=== PATIENT | female | born 1985 ===

== ENCOUNTER 2025-03-30 13:05 | Outpatient (AMB) | payer MEDICAID, SELFPAY ==
--- NOTE | 2025-03-30 13:11 | MHC.OFFVIS ---
Vital Signs 03/30/25 13:13 Height 5 ft 4.5 in Weight 202 lb 4 oz BMI 34.2 BP 128/74 Blood Pressure Location Lt brachial Position Sitting Pulse 101 H Pulse Source Pulse Oximeter Pulse Oximetry (%) 97 Oxygen Delivery Method Room Air Intake Visit Reasons: E-FOREST PRACTICES FIELD COORDINATOR: Narcolepsy Intake Note: Patient presents FOREST PRACTICES FIELD COORDINATOR Narcolepsy. Patient on Adderall and wakik and still sleepy in afternoon. issues sleeping at night wake up frequently during the night. GOes to bed around 9-10pm 5-6am. Witnessed snoring/gasping. Patient last sleep study done 2017 in [facility]. Accompanied by: Self / Same As Patient Allergies No Known Allergies Allergy (Verified 03/30/25 13:14) HPI Comments Details: 39 year old female referred to us by google search for a neurologist who specializes in sleep disorders, here for Narcolepsy. She was diagnosed in January 2009 with Narcolepsy while residing in [facility] during her [facility] studies. She was prescribed adderall, and still had symptoms of hypersonia, months later her neurologists added Wakix which makes her have a bowel movement, takes a 20min nap then she is alert the entire day. She has had chronic fatigue, excessive daytime sleepiness, with hypersomnia, and sleep paralysis. She has fallen asleep in school, at work, and in the movie theatres. She talks and mumbles when coming out of sleep and awakening. She has vivid dreams and hallucinations differentiating between dreams are reality. Denies A/V hallucinations. She has general anxiety and bouts of depression for years. She jumps from topic to topic and lacks focus. Her memory is poor, forgets many tasks, and never was diagnosed with ADHD. Denies morning headaches, clenching of the jaw and pain. RLS symptoms, she constantly needs to rub her feet together at night, has weakness in her hands with numbness and tingling bilaterally in legs. She twitches and wakes herself up at night every 2 hours and consistently has fragmented sleep. She denies smoking, MJ, and edibles. Denies seizure disorder, bells fernando, stroke like symptoms and movement disorders. ESS is 15 Medications Trialed: Per denial of PA for Wakix the following additional information is being provided, as she is a new pt to [facility], Neurology and Sleep Medicine, she is a former pt of [facility], where she was seeing Dwayne Rodriguez for a diagnosis of Narcolepsy: 1.copy of sleep study, and diagnosis of Narcolepsy with Sleep study from previous clinic is needed. 2. She was trialed on Modafinil 200mg was not effective Wakix 17.8 mg did not work well however once increased to 17.8mg po BID she had therapeutic effects and could focus on and accomplish her tasks at work, she was on schedule and could balance work with her daughter's school schedule. Jana did not work well for her work schedule. Donna was denies per her insurance. 3. Sleep Study results are included in records which are faxed to us with dx of Narcolepsy. [facility] Medical History Seizure Acne comedone Depression Hidradenitis suppurativa Leg pain Low back pain Narcolepsy Rosacea Surgical History Hx of wisdom tooth extraction Family History Brother Asthma Maternal Grandmother Diabetes mellitus HTN (hypertension) Thyroid disease Ulcerative colitis Review of Systems Neuro Reports Abnormal speech present (uncertain / southern accent or restriction of oral movements) Physical Exam Vital Signs: Last Vital Signs Pulse 101 H 03/30/25 13:13 BP 128/74 03/30/25 13:13 Pulse Ox 97 03/30/25 13:13 Oxygen Delivery Method Room Air 03/30/25 13:13 BMI result Body Mass Index 34.2 Const General: cooperative and comfortable Nutritional Appearance: obese Orientation/consciousness: patient oriented x3 HEENT Face and sinus: Yes face symmetric Teeth and gingiva: other (mallampti score is 4) Neck Neck: Yes full ROM Resp Effort & Inspection: normal respiratory effort and able to speak in complete sentences Neuro General: patient oriented x3 and moves all extremities Cranial nerves: Yes Normal accommodation reflex present, Yes Normal facial strength present, Yes Midline tongue present, Yes Ability to bilaterally rotate head present and Yes Ability to bilaterally elevate shoulders present Cognition (Neuro): normal cognition Speech: Abnormal speech present (uncertain / southern accent or restriction of oral movements) Gait exam (Neuro): Normal gait present Motor exam (neuro): 5/5 motor strength present throughout and Normal motor muscle tone present throughout Psych Appearance: grossly normal Thought process: Normal thought process present Thought content: Normal thought content present Assessment & Plan Assessment & Plan (1) Excessive daytime sleepiness: Code(s): G47.19 - Other hypersomnia Category: Medical (2) Narcolepsy: Code(s): G47.419 - Narcolepsy without cataplexy Category: Medical Qualifiers: Narcolepsy type: 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 hold adderall for 3 days prior to PSG and MSLT and complete a tox screen day of MSLT Past medication trials for Narcolepsy Xyrem not good for daughter's school schedule [employer] insurance denied. Excessive daytime fatigue Labs to r/o deficiencies Future considerations : will send her to neuropsyche testing for ADHD evaluation, if symptoms of cognition do not improve with cpap use, if she has ZAC. Orders: Orders Vitamin D 25-OH Total 03/30/25 G47.19 - Other hypersomnia TSH reflex Free T4 03/30/25 G47.19 - Other hypersomnia Ferritin 03/30/25 G47.19 - Other hypersomnia RT PSG in-lab sleep study 03/30/25 G47.19 - Other hypersomnia, G47.419 - Narcolepsy without cataplexy, G47.10 - Hypersomnia, unspecified, R68.89 - Other general symptoms and signs RT sleep testing - MSLT 03/30/25 G47.10 - Hypersomnia, unspecified, G47.19 - Other hypersomnia, G47.419 - Narcolepsy without cataplexy, R68.89 - Other general symptoms and signs Vitamin B6 03/30/25 G47.19 - Other hypersomnia Vitamin B12 and Folate 03/30/25 G47.19 - Other hypersomnia Methylmalonic Acid 03/30/25 R53.83 - Other fatigue, G47.9 - Sleep disorder, unspecified, G47.19 - Other hypersomnia Homocysteine 03/30/25 R53.83 - Other fatigue, G47.9 - Sleep disorder, unspecified, G47.19 - Other hypersomnia IRON PROFILE 03/30/25 R53.83 - Other fatigue, G47.9 - Sleep disorder, unspecified, G47.19 - Other hypersomnia Complete Blood Count no Diff 03/30/25 G47.19 - Other hypersomnia Comprehensive Met. Panel 03/30/25 G47.19 - Other hypersomnia Patient Instructions: Sleep Hygiene provided: set a scheduled bedtime and wake time to help regulate the circadian rhythm and balance the release of pituitary hormones. Sleep in a dark room, temperatures below 68 degrees, and no devices n bed. Limit caffeinated products 6 hours prior to bed, and limit fluids 2-4 hours prior to bed. Gentle night yoga, diffusing essential oils, and playing soft music can be relaxing. Self care/ CBTI zamzam/ find a therapist in the area and build a cohesive relationship with her or him. Coding Level of Care Code New Pt Level 4 (79790) Diagnoses Excessive daytime sleepiness G47.19 Primary narcolepsy without cataplexy G47.419 Narcolepsy type: primary without cataplexy Hypersomnia G47.10 Forgetfulness R68.89 Rowena Sleepiness Scale Questions Sitting and reading: high chance of dozing Watching TV: moderate chance of dozing Sitting inactive in a theater, movie etc.: high chance of dozing As a passenger in a car for an hour without break: high chance of dozing Lying down in the afternoon when circumstances permit: slight chance of dozing Sitting and talking to someone: slight chance of dozing Sitting quietly after lunch without alcohol: moderate chance of dozing In a car, while stopped for a few minutes in the traffic: would never doze ESS < 10: normal, ESS > 12: pathologic: 15 Sleep Questionnaire Difficulty falling asleep: Yes Difficulty staying asleep?: Yes Number of arousals: 2x + Snoring: Yes Witnessed apneas: No Gasping arousals: Yes Nocturia: No GERD: No Vivid dreams: Yes Acting out dreams: Yes Abnormal behavior in sleep: Yes (sleep talks when coming out of her sleep) Abnormal movements in sleep: Yes Morning headaches: No Excessive daytime sleepiness: Yes Daytime naps: Yes Restless legs: Yes Hallucinations: Yes Sleep paralysis: Yes Drop attacks: Yes Sleep Study: Yes (2008) CPAP: No
[2025-03-30 13:13] VITALS: BP 128/74; PULSE 101; O2SAT 97; BMI 34.2
--- OUTSIDE RECORDS SUMMARY | 2025-03-30 16:06 | XMS_ITS | Encounter Summary ---
Author Organization [facility] Address [address] [facility] [place] [address] Care Team Providers Care Vessel Engineer Name Role Phone Luci Galvez MD Unavailable [phone] Pcp, No Primary Care Provider Unavailabl e Encounter Details Date Type Department Care Team (Late st Contact Info) Description 06/13/2021 Refill Neurology, Physician Office Center [address] [place] [phone] Ani Kramer MD [address] [place] [address] [address] TIFFANIE MU[address] [place] [address] Social History Tobacco Use Types Packs/Day Years Used Date Smoking Tobacco: Every Day Cigarettes 1 5 Started: 09/17/2010; Last attempted to quit: 09/18/2015 Cigars Smokeless Tobacco: Never Comments:3 cigars per day Alcohol Use Standard Drinks/Week Comments No 0 (1 standard drink = 0.6 oz pur e alcohol) Comments No Sex and Gender Information Value Date Recorded Sex Assigned at Female 12/11/2022 3:08 PM EDT Legal Sex Female 12:42 AM EST Gender Identity Female 12/11/2022 3:08 PM EDT Sexual Orientation Not on file documented as of this encounter Miscellaneous Notes * Telephone Encounter - Ansley Sahni MA - 06/13/2021 9:48 AM EST Review * Telephone Encounter - Ansley Sahni MA - 06/13/2021 9:48 AM EST Regarding: Nia ----- Message from Nicky Rankin sent at 06/13/2021 9:32 AM EST ----- Doctor Name: Nia Date of last appointment: 11-27-20 Next scheduled visit: 08/13/21 Medication Requested: amphetamine-dextroamphetamine (ADDERALL) 30 mg Oral Tablet modafiniL (PROVIGIL) 200 mg Oral Tablet Medication issues or side effects that need reported to nurse or physician: Preferred Pharmacy [facility] [id number] - [place], [place] - [address] [facility] [address] & [facility] [address] [place] [address] Hours: Not open 24 hours Notes for Nurse or Physician: documented in this encounter Plan of Treatment Not on file documented as of this encounter Visit Diagnoses Not on filedocumented in this encounter Additional Health Concerns Infection Onset Date Last Indicated Resolved Time COVID-19 Rule-out 10/14/2023 10/14/2023 10/15/2023 9:14 AM EDT documented as of this encounter Care Teams Vessel Engineer Relationship Specialty Start Date End Date Luci Galvez MD [address] [place] [address] PCP - Managed Care/Insurance Pediatrics 11/14/15 Pcp, No PCP - General 10/09/18 documented as of this encounter
--- OUTSIDE RECORDS SUMMARY | 2025-03-30 16:06 | XMS_ITS | Encounter Summary ---
Author Organization [facility] Address 1 [facility] [place] [address] Care Team Providers Care Warp Starter Name Role Phone Luci Galvez MD Unavailable Pcp, No Primary Care Provider Unavailabl e Reason for Visit * Reason Onset Date Comments Medication Refill 09/02/2024 Encounter Details Date Type Department Care Team (Late st Contact Info) Description 09/02/2024 MyChart Refill Neurology, Physician Office Center 1 [place] [address] Ani Kramer MD [address] [place] [address] [address] TIFFANIE MU[address] [place] [address] Social History Tobacco Use Types Packs/Day Years Used Date Smoking Tobacco: Never Passive Smoke Exposure: Never Smokeless Tobacco: Never Comments:3 cigars per day [...] encounter Miscellaneous Notes * Telephone Encounter - Katey Gomez RN - 09/02/2024 11:13 AM EST done documented in this encounter Plan of Treatment Not on file documented as of this encounter Visit Diagnoses Not on filedocumented in this encounter Care Teams Warp Starter Relationship Specialty Start Date End Date Luci Galvez MD [address] [facility] [address] [place], [place] [address] PCP - Managed Care/Insurance Pediatrics 11/14/15 Pcp, No PCP - General 10/09/18 documented as of this encounter
--- OUTSIDE RECORDS SUMMARY | 2025-03-30 16:06 | XMS_ITS | Encounter Summary ---
Author Organization [facility] Address 1 [facility] [place] [address] Care Team Providers Care Legal Referee Name Role Phone Luci Galvez MD Unavailable [phone] Pcp, No Primary Care Provider Unavailabl e Reason for Visit * Reason Onset Date Comments Medication Refill 11/20/2020 Encounter Details Date Type Department Care Team (Late st Contact Info) Description 11/20/2020 MyChart Refill Neurology, Physician Office Center 1 [place] [address] Ani Kramer MD [address] [place] [address] [address] TIFFANIE MU[address] [place] [address] Social History Tobacco Use Types [...] Telephone Encounter - Katey Gomez RN - 11/20/2020 3:20 PM EDT Last seen 01/2020 Please erx * Telephone Encounter - Katey Gomez RN - 11/20/2020 3:20 PM EDT ----- Message from Jazmín Ceballos sent at 11/20/2020 3:17 PM EDT ----- Regarding: Prescription Question Contact: 3 months refill on adderrall or check up? Thanks documented in this encounter Plan of Treatment Not on file documented as of this encounter Visit Diagnoses Not on filedocumented in this encounter Additional Health Concerns Infection Onset Date Last Indicated Resolved Time COVID-19 Rule-out 10/14/2023 10/14/2023 10/15/2023 9:14 AM EDT documented as of this encounter Care Teams Legal Referee Relationship Specialty Start Date End Date Luci Galvez MD [address] [facility] [place] [phone] PCP - Managed Care/Insurance Pediatrics 11/14/15 Pcp, No PCP - General 10/09/18 documented as of this encounter
--- OUTSIDE RECORDS SUMMARY | 2025-03-30 16:06 | XMS_ITS | Encounter Summary ---
Author Organization [facility] Address 1 [facility] [place] [address] Care Team Providers Care Student Finance Advisor Name Role Phone Luci Galvez MD Unavailable [phone] Pcp, No Primary Care Provider Unavailabl e Reason for Visit * Reason Onset Date Comments Medication Refill 05/15/2020 Encounter Details Date Type Department Care Team (Late st Contact Info) Description 05/15/2020 Refill Neurology, Physician Office Center [address] [place] [phone] Ani Kramer MD [address] [place] [address] [address] TIFFAN[address] MU[address] [place] [address] Social History Tobacco Use Types [...] Telephone Encounter - Katey Gomez RN - 05/15/2020 11:14 AM EDT Please erx 3 month supply * Telephone Encounter - Katey Gomez RN - 05/15/2020 11:12 AM EDT Regarding: Nia ----- Message from Nusrat Roman sent at 05/15/2020 11:06 AM EDT ----- Doctor Name: Nia Date of last appointment:02.07.20 Next scheduled visit: n/a Medication Requested: amphetamine-dextroamphetamine (ADDERALL) 30 mg Oral Tablet Medication issues or side effects that need reported to nurse or physician: Preferred Pharmacy [facility] [address] [facility], [place] - [address] [facility] [address] [facility] [address] [place] [address] Not a 24 hour pharmacy; exact hours not known. Notes for Nurse or Physician: Pt is out of medication today -- would like a 90- day supply documented in this encounter Plan of Treatment Not on file documented as of this encounter Visit Diagnoses Not on filedocumented in this encounter Additional Health Concerns Infection Onset Date Last Indicated Resolved Time COVID-19 Rule-out 10/14/2023 10/14/2023 10/15/2023 9:14 AM EDT documented as of this encounter Care Teams Student Finance Advisor Relationship Specialty Start Date End Date Luci Galvez MD [address] [facility] [address] [place] [id number] PCP - Managed Care/Insurance Pediatrics 11/14/15 Pcp, No PCP - General 10/09/18 documented as of this encounter
--- OUTSIDE RECORDS SUMMARY | 2025-03-30 16:06 | XMS_ITS | Encounter Summary ---
Author Organization [facility] Address 1 [facility] [place] [address] Care Team Providers Care Area Safety Manager Name Role Phone Luci Galvez MD Unavailable [phone] Pcp, No Primary Care Provider Unavailabl e Reason for Visit * Reason Onset Date Comments Medication Refill 08/17/2020 Encounter Details Date Type Department Care Team (Late st Contact Info) Description 08/17/2020 MyChart Refill Neurology, Physician Office Center 1 [place] [phone] Ani Kramer MD [address] [place] [address] [address] TIFFANIE MU[address] [place] [address] Social History Tobacco Use Types [...] Telephone Encounter - Katey Gomez RN - 08/18/2020 11:19 AM EST Yes, he sent them. Today at 1030 am. Order Providers Prescribing Provider Encounter Provider Ani Kramer MD Azzouz, Mouhannad, MD Panel Detail for ADDERALL 30 MG 3 MO PANEL Outpatient Medication Detail Disp Refills Start End amphetamine-dextroamphetamine (ADDERALL) 30 mg Oral Tablet 60 Tab 0 09/17/2020 10/16/2020 Sig - Route: Take 1 Tab (30 mg total) by mouth Twice daily for 29 days - Oral Sent to pharmacy as: dextroamphetamine-amphetamine 30 mg tablet (AdderalL) Class: E-Rx Earliest Fill Date: 09/16/2020 Non-formulary Exception Code: RXHUB/No Formulary Info Available E-Prescribing Status: Receipt confirmed by pharmacy (08/18/2020 10:30 AM EST) Other Panel Orders Outpatient Medications Disp Refills Start End amphetamine-dextroamphetamine (ADDERALL) 30 mg Oral Tablet 60 Tab 0 08/18/2020 09/16/2020 Sig - Route: Take 1 Tab (30 mg total) by mouth Twice daily for 29 days - Oral Sent to pharmacy as: dextroamphetamine-amphetamine 30 mg tablet (AdderalL) Class: E-Rx Earliest Fill Date: 08/18/2020 Non-formulary Exception Code: RXHUB/No Formulary Info Available E-Prescribing Status: Receipt confirmed by pharmacy (08/18/2020 10:30 AM EST) Pharmacy [address], [place] - [address] [place] [address] [address] [place] [address] * Telephone Encounter - Katey Gomez RN - 08/18/2020 11:19 AM EST Regarding: elo ----- Message from Mary Childress sent at 08/18/2020 11:09 AM EST ----- Jazmín is calling because Dr Kramer was supposed to send adderral for her and did not . Preferred Pharmacy [address], [place] - [address] [facility] [address] [facility] & [facility] [address] [facility] [address] [place] [address] Not a 24 hour pharmacy; exact hours not known. * Telephone Encounter - Katey Gomez RN - 08/18/2020 10:41 AM EST ----- Message from Ani Kramer MD sent at 08/18/2020 10:34 AM EST ----- Dictated it if denied pt will pay for it she said ----- Message ----- From: Katey Gomez RN Sent: 08/18/2020 9:20 AM EST To: Ani Kramer MD ----- Message from Katey Gomez RN sent at 08/18/2020 9:20 AM EST ----- ----- Message sent from Katey Gomez RN to Jazmín Ceballos at 08/18/2020 7:43 AM ----- Dr.Azzouz Fe ordered the Modafinil (Provigil), but I need to call the insurance and get itprior authed. I will call when they open up this am. wanted to know if you are on any hormonal meds? Because they do interfere. If you experience any side effects, please let us know. So, are you taking any hormones? EILEEN Del Toro * Telephone Encounter - Katey Gomez RN - 08/18/2020 10:08 AM EST Regarding: elo ----- Message from Rosalina Love sent at 08/18/2020 10:05 AM EST ----- Pt called back and stated that only one of the scripts was called in for Adderall. Please call pt to discuss. Thanks ----- Message from Sarahy Schultz sent at 08/17/2020 4:00 PM EST ----- Pt is calling again and it very upset that it's not been called in yet. Please call in KAREL. ----- Message from Mary Childress sent at 08/17/2020 9:43 AM EST ----- Doctor Name: Date of last appointment: 02/07/20 Next scheduled visit: n/a Medication Requested: adderal Medication issues or side effects that need reported to nurse or physician: Preferred Pharmacy [facility] [address] - [facility], [place] - [address] [facility] [facility] [address] [facility] [address] [facility] [place] [address] Not a 24 hour pharmacy; exact hours not known. Notes for Nurse or Physician: Jazmín would also like to speak with someone regarding her med * Telephone Encounter - Katey Gomez RN - 08/18/2020 7:28 AM EST Last seen 02/07/20 Please erx documented in this encounter Plan of Treatment Not on file documented as of this encounter Visit Diagnoses Not on filedocumented in this encounter Additional Health Concerns Infection Onset Date Last Indicated Resolved Time COVID-19 Rule-out 10/14/2023 10/14/2023 10/15/2023 9:14 AM EDT documented as of this encounter Care Teams Area Safety Manager Relationship Specialty Start Date End Date Luci Galvez MD [address] [facility] [place] [address] [place] [phone] PCP - Managed Care/Insurance Pediatrics 11/14/15 Pcp, No PCP - General 10/09/18 documented as of this encounter
--- OUTSIDE RECORDS SUMMARY | 2025-03-30 16:06 | XMS_ITS | Encounter Summary ---
Author Organization [facility] Address 1 [facility] [place] [address] Care Team Providers Care Graphic Designer Name Role Phone Luci Galvez MD Unavailable [phone] Pcp, No Primary Care Provider Unavailabl e Reason for Visit * Reason Onset Date Comments Medication Refill 06/07/2019 Encounter Details Date Type Department Care Team (Late st Contact Info) Description 06/07/2019 MyChart Refill Neurology Clinic, [facility] [address] [phone] Ani Kramer MD [address] [place] [address] [address] TIFFANIE MU[address] [place] [address] Social History Tobacco Use Types [...] Telephone Encounter - Ansley Sahni MA - 06/07/2019 11:43 AM EST Review erx documented in this encounter Plan of Treatment Not on file documented as of this encounter Visit Diagnoses Not on filedocumented in this encounter Additional Health Concerns Infection Onset Date Last Indicated Resolved Time COVID-19 Rule-out 10/14/2023 10/14/2023 10/15/2023 9:14 AM EDT documented as of this encounter Care Teams Graphic Designer Relationship Specialty Start Date End Date Luci Galvez MD [address] [facility] [place] [phone] PCP - Managed Care/Insurance Pediatrics 11/14/15 Pcp, No PCP - General 10/09/18 documented as of this encounter
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
--- OUTSIDE RECORDS SUMMARY | 2025-03-30 16:06 | XMS_ITS | Encounter Summary ---
Author Organization [facility] Address 1 [facility] [place] [address] Care Team Providers Care Donor Services Coordinator Name Role Phone Luci Galvez MD Unavailable [phone] Pcp, No Primary Care Provider Unavailabl e Reason for Visit * Reason Onset Date Comments Medication Refill 04/10/2021 Encounter Details Date Type Department Care Team (Late st Contact Info) Description 04/10/2021 Refill Neurology, [facility] [address] [place] [phone] Ani Kramer MD [address] [place] [address] [address] TIFFANIE MUIR [address] [place] [address] Social History Tobacco Use Types [...] Telephone Encounter - Katey Gomez RN - 04/10/2021 2:25 PM EDT Please erx * Telephone Encounter - Katey Gomez RN - 04/10/2021 2:25 PM EDT Regarding: Nestorjeannine ----- Message from Marysol Judd Xiao sent at 04/10/2021 2:23 PM EDT ----- Doctor Name: Nia Next scheduled visit: 08/13/20 Medication Requested: amphetamine-dextroamphetamine (ADDERALL) 30 mg Oral Tablet [Ani Kramer MD] Medication issues or side effects that need reported to nurse or physician: Preferred Pharmacy [facility] [id number] - [place], [place] - [address] [facility] [address] & [facility] [address] [place] [address] Hours: Not open 24 hours Notes for Nurse or Physician: Pt is out of medication documented in this encounter Plan of Treatment Not on file documented as of this encounter Visit Diagnoses Not on filedocumented in this encounter Additional Health Concerns Infection Onset Date Last Indicated Resolved Time COVID-19 Rule-out 10/14/2023 10/14/2023 10/15/2023 9:14 AM EDT documented as of this encounter Care Teams Donor Services Coordinator Relationship Specialty Start Date End Date Luci Galvez MD [address] [facility] [place] [address] PCP - Managed Care/Insurance Pediatrics 11/14/15 Pcp, No PCP - General 10/09/18 documented as of this encounter
--- OUTSIDE RECORDS SUMMARY | 2025-03-30 16:06 | XMS_ITS | Encounter Summary ---
Author Organization [facility] Address 1 [facility] [place] [address] Care Team Providers Care Auto Service Writer Name Role Phone Luci Galvez MD Unavailable [phone] Pcp, No Primary Care Provider Unavailabl e Reason for Visit * Reason Onset Date Comments Medication Refill 10/20/2020 Encounter Details Date Type Department Care Team (Late st Contact Info) Description 10/20/2020 MyChart Refill Neurology, [facility] Office Center 1 [place] [address] Ani Kramer MD [address] [place] [address] [address] TIFFANIE MU[address] [place] [address] Social History Tobacco Use Types [...] on file documented as of this encounter Plan of Treatment Not on file documented as of this encounter Visit Diagnoses Not on filedocumented in this encounter Additional Health Concerns Infection Onset Date Last Indicated Resolved Time COVID-19 Rule-out 10/14/2023 10/14/2023 10/15/2023 9:14 AM EDT documented as of this encounter Care Teams Auto Service Writer Relationship Specialty Start Date End Date Luci Galvez MD [address] [facility] [address] [place], [place] [phone] PCP - Managed Care/Insurance Pediatrics 11/14/15 Pcp, No PCP - General 10/09/18 documented as of this encounter
--- OUTSIDE RECORDS SUMMARY | 2025-03-30 16:06 | XMS_ITS | Encounter Summary ---
Author Organization [facility] Address 1 [facility] [place] [address] Care Team Providers Care Astrobiologist Name Role Phone Luci Galvez MD Unavailable [phone] Pcp, No Primary Care Provider Unavailabl e Encounter Details Date Type Department Care Team (Late st Contact Info) Description 10/20/2020 Refill Neurology, [facility] [address] [place] [phone] Ani Kramer MD [address] [place] [address] [address] TIFFANIE MU[address] [place] [address] Social History Tobacco Use Types [...] Telephone Encounter - Katey Gomez RN - 10/20/2020 3:06 PM EDT Please erx * Telephone Encounter - Katey Gomez RN - 10/20/2020 3:05 PM EDT Regarding: Azzouz ----- Message from Rosalina Love sent at 10/20/2020 2:55 PM EDT ----- Pt called and requested a refill on amphetamine-dextroamphetamine (ADDERALL) 30 mg Oral Tablet. Sheis completely out of medication. Thanks Preferred [facility]acy [facility] [id number] - [address] [facility] [address] [facility] [address] [facility] [address] [place] [address] [address] documented in this encounter Plan of Treatment Not on file documented as of this encounter Visit Diagnoses Not on filedocumented in this encounter Additional Health Concerns Infection Onset Date Last Indicated Resolved Time COVID-19 Rule-out 10/14/2023 10/14/2023 10/15/2023 9:14 AM EDT documented as of this encounter Care Teams Astrobiologist Relationship Specialty Start Date End Date Luci Galvez MD [address] [facility] [place] [phone] PCP - Managed Care/Insurance Pediatrics 11/14/15 Pcp, No PCP - General 10/09/18 documented as of this encounter
--- OUTSIDE RECORDS SUMMARY | 2025-03-30 16:06 | XMS_ITS | Encounter Summary ---
Author Organization [facility] Address 1 [facility] [place] [address] Care Team Providers Care Loss Prevention Analyst Name Role Phone Luci Galvez MD Unavailable [phone] Pcp, No Primary Care Provider Unavailabl e Reason for Visit * Reason Onset Date Comments Medication Refill 12/07/2019 Encounter Details Date Type Department Care Team (Late st Contact Info) Description 12/07/2019 MyChart Refill Neurology Clinic, [facility] Eye [address] [phone] Ani Kramer MD [address] [place] [address] [address] TIFFANIE MUIR [address] [place] [address] Narcolepsy Social History Tobacco Use Types Packs/Day Years [...] Telephone Encounter - Katey Gomez RN - 12/07/2019 2:45 PM EDT Images from the original note were not included. Appointment Request Nusrat Roman Katasha L 3 minutes ago (2:41 PM) I have forwarded your message to Dr Kramer' nurse requesting a refill ?? Please check with your pharmacy tomorrow or (12/09/19) ?? Thank you This Cuciniale message has not been read. Nusrat Roman Neuro- General 4 minutes ago (2:40 PM) Pt is requesting a refill on her Adderall Routing comment Jazmín Ceballos Patient Appointment Schedule Request Pool 1 hour ago (1:16 PM) Will I be able to refill my prescription before the next appointment? I am out of Adderall 30 mg, twice a day =60 [facility]. Bindu James Katasha L * Telephone Encounter - Katey Gomez RN - 12/07/2019 1:22 PM EDT Last seen 07/02/19 Please erx documented in this encounter Plan of Treatment Not on file documented as of this encounter Visit Diagnoses Diagnosis Narcolepsy Narcolepsy without cataplexy documented in this encounter Additional Health Concerns Infection Onset Date Last Indicated Resolved Time COVID-19 Rule-out 10/14/2023 10/14/2023 10/15/2023 9:14 AM EDT documented as of this encounter Care Teams Loss Prevention Analyst Relationship Specialty Start Date End Date Luci Galvez MD [address] [facility] [place] [phone] PCP - Managed Care/Insurance Pediatrics 11/14/15 Pcp, No PCP - General 10/09/18 documented as of this encounter
--- OUTSIDE RECORDS SUMMARY | 2025-03-30 16:06 | XMS_ITS | Encounter Summary ---
Author Organization [facility] Address 1 [facility] [place] [address] Care Team Providers Care Bag Filler Name Role Phone Luci Galvez MD Unavailable [phone] Pcp, No Primary Care Provider Unavailabl e Reason for Visit * Reason Onset Date Comments Medication Refill 10/22/2021 Encounter Details Date Type Department Care Team (Late st Contact Info) Description 10/22/2021 Refill Neurology, Physician Office Center [address] [place] [phone] Ani Kramer MD [address] [place] [address] [address] TIFFANIE MUIR [address] [place] [address] Social History Tobacco Use Types [...] Telephone Encounter - Katey Gomez RN - 10/23/2021 10:10 AM EDT Please erx * Telephone Encounter - Katey Gomez RN - 10/23/2021 10:09 AM EDT Regarding: azzouz ----- Message from Kandi García sent at 10/23/2021 10:08 AM EDT ----- Patient recalled. She is out of medication. Thanks ----- Message from Sarahy Schultz sent at 10/22/2021 9:45 AM EDT ----- azzouz - rx refill amphetamine-dextroamphetamine (ADDERALL) 30 mg Oral Tablet Preferred Pharmacy [facility] [phone] [place] [address] [address] [place] [address] Hours: Not open 24 hours * Telephone Encounter - Katey Gomez RN - 10/22/2021 9:51 AM EDT Last seen 08/13/21 Please erx * Telephone Encounter - Katey Gomez RN - 10/22/2021 9:51 AM EDT Regarding: azzouz ----- Message from Sarahy Schultz sent at 10/22/2021 9:45 AM EDT ----- azzouz - rx refill amphetamine-dextroamphetamine (ADDERALL) 30 mg Oral Tablet Preferred Pharmacy [facility] [id number] [place] [address] [address] [place] [address] Hours: Not open 24 hours documented in this encounter Plan of Treatment Not on file documented as of this encounter Visit Diagnoses Not on filedocumented in this encounter Additional Health Concerns Infection Onset Date Last Indicated Resolved Time COVID-19 Rule-out 10/14/2023 10/14/2023 10/15/2023 9:14 AM EDT documented as of this encounter Care Teams Bag Filler Relationship Specialty Start Date End Date Luci Galvez MD [address] [facility] [address] [place], [place] [phone] PCP - Managed Care/Insurance Pediatrics 11/14/15 Pcp, No PCP - General 10/09/18 documented as of this encounter
--- OUTSIDE RECORDS SUMMARY | 2025-03-30 16:06 | XMS_ITS | Encounter Summary ---
Author Organization [facility] Address 1 [facility] [place] [address] Care Team Providers Care Field Service Tech Name Role Phone Luci Galvez MD Unavailable [phone] Pcp, No Primary Care Provider Unavailabl e Encounter Details Date Type Department Care Team (Late st Contact Info) Description 05/16/2020 Refill Neurology, Physician Office Center [address] [place] [phone] Ani Kramer MD [address] [place] [address] [address] TIFFANIE MU[address] [place] [address] Social History Tobacco Use Types [...] Telephone Encounter - Ansley Sahni MA - 05/16/2020 11:02 AM EDT You sent to wrong pharmacy it needs to go to [facility] . * Telephone Encounter - Ansley Sahni MA - 05/16/2020 11:01 AM EDT Regarding: Emirdannyjeannien ----- Message from Rosalina Nicole Kate sent at 05/16/2020 10:49 AM EDT ----- Pt called and stated that she is completely out of medication and cannot function without it. Please call to discuss. Thanks ----- Message from Nusrat Roman sent at 05/15/2020 11:06 AM EDT ----- Doctor Name: Nia Date of last appointment:02.07.20 scheduled visit: n/a Medication Requested: amphetamine-dextroamphetamine (ADDERALL) 30 mg Oral Tablet Medication issues or side effects that need reported to nurse or physician: Preferred Pharmacy [facility] [id number] [facility] [address] [facility] [address] [facility] [address] [facility] [address] [place] [address] Not a 24 hour pharmacy; exact hours [...] documented as of this encounter Care Teams Field Service Tech Relationship Specialty Start Date End Date Luci Galvez MD [address] [facility] [place] [address] PCP - Managed Care/Insurance Pediatrics 11/14/15 Pcp, No PCP - General 10/09/18 documented as of this encounter
--- OUTSIDE RECORDS SUMMARY | 2025-03-30 16:06 | XMS_ITS | Encounter Summary ---
Author Organization [facility] Address 1 [facility] [place] [address] Care Team Providers Care Janitorial Assistant Name Role Phone Luci Galvez MD Unavailable [phone] Pcp, No Primary Care Provider Unavailabl e Reason for Visit * Reason Onset Date Comments Medication Refill 08/29/2020 Encounter Details Date Type Department Care Team (Late st Contact Info) Description 08/29/2020 Refill Neurology, Physician Office Center [address] [place] [phone] Ani Kramer MD [address] [place] [address] [address] TIFFANIE MUIR [address] [place] [address] Social History Tobacco Use Types [...] Telephone Encounter - Katey Gomez RN - 08/29/2020 12:04 PM EST provigil needs to go to local pharmacy Please re-erx documented in this encounter Plan of Treatment Not on file documented as of this encounter Visit Diagnoses Not on filedocumented in this encounter Additional Health Concerns Infection Onset Date Last Indicated Resolved Time COVID-19 Rule-out 10/14/2023 10/14/2023 10/15/2023 9:14 AM EDT documented as of this encounter Care Teams Janitorial Assistant Relationship Specialty Start Date End Date Luci Galvez MD [address] [facility] [place] [phone] PCP - Managed Care/Insurance Pediatrics 11/14/15 Pcp, No PCP - General 10/09/18 documented as of this encounter
--- OUTSIDE RECORDS SUMMARY | 2025-03-30 16:06 | XMS_ITS | Encounter Summary ---
Author Organization [facility] Address 1 [facility] [place] [address] Care Team Providers Care Organic Lab Worker Name Role Phone Luci Galvez MD Unavailable [phone] Pcp, No Primary Care Provider Unavailabl e Reason for Visit * Reason Onset Date Comments Medication Refill 07/05/2022 Encounter Details Date Type Department Care Team (Late st Contact Info) Description 07/05/2022 MyChart Refill Neurology, Physician Office Center 1 [place] [phone] Ani Kramer MD [address] [place] [address] [address] TIFFANIE MUIR [address] [place] [address] Social History Tobacco Use Types [...] documented as of this encounter Care Teams Organic Lab Worker Relationship Specialty Start Date End Date Luci Galvez MD [address] [facility] [address] [place], [place] [phone] PCP - Managed Care/Insurance Pediatrics 11/14/15 Pcp, No PCP - General 10/09/18 documented as of this encounter
--- OUTSIDE RECORDS SUMMARY | 2025-03-30 16:06 | XMS_ITS | Encounter Summary ---
Author Organization [facility] Address 1 [facility] [place] [address] Care Team Providers Care Sushi Chef Name Role Phone Luci Galvez MD Unavailable [phone] Pcp, No Primary Care Provider Unavailabl e Reason for Visit * Reason Onset Date Comments Medication Refill 07/17/2021 Encounter Details Date Type Department Care Team (Late st Contact Info) Description 07/17/2021 Refill Neurology, Physician Office Center [address] [place] [phone] Ani Kramer MD [address] [place] [address] [address] TIFFANIE MUIR [address] [place] [address] Social History Tobacco Use Types [...] PM EDT Sexual Orientation Not on file COVID-19 Exposure Response Date Recorded In the last month, have you been in contact with someone who was confirmed or suspected to have Coronavirus / COVID-19? No / Unsure 07/08/2021 11:13 PM EST documented as of this encounter Miscellaneous Notes * Telephone Encounter - Katey Gomez RN - 07/18/2021 8:28 AM EST Prescribing Provider Encounter Provider Ani Kramer MD Azzouz, Mouhannad, MD Outpatient Medication Detail Should have provigil, please erx Adderall Last seen 11/27/20 Next appt 08/13/20 Please erx Disp Refills Start End modafiniL (PROVIGIL) 200 mg Oral Tablet 30 Tablet 5 06/15/2021 Sig - Route: Take 1 Tablet (200 mg total) by mouth Once a day - Oral Sent to pharmacy as: modafiniL 200 mg tablet (PROVIGIL) Class: E-Rx Non-formulary Exception Code: [email or web address]/No Formulary Info Available E-Prescribing Status: Receipt confirmed by pharmacy (06/15/2021 10:31 AM EST) Pharmacy [facility] [id number] [address] & [facility] Additional Information * Telephone Encounter - Katey Gomez RN - 07/18/2021 8:28 AM EST Regarding: nia ----- Message from Jessica Lopes sent at 07/17/2021 3:59 PM EST ----- Doctor Name: Nia Date of last appointment: 11/27/2020 Next scheduled visit: 08/13/2021 Medication Requested: amphetamine-dextroamphetamine (ADDERALL) 30 mg Oral Tablet ??modafiniL (PROVIGIL) 200 mg Oral Tablet Medication issues or side effects that need reported to nurse or physician: Preferred Pharmacy [facility] [id number] [address] [place] [address] Hours: Not open 24 hours Notes for Nurse or Physician: has been out of them for two days * Telephone Encounter - Katey Gomez RN - 07/17/2021 7:29 AM EST Last seen 11/27/20 Next appt 08/13/20 Please erx * Telephone Encounter - Katey Gomez RN - 07/17/2021 7:29 AM EST Regarding: azzouz ----- Message from Sarahy Schultz sent at 07/16/2021 3:58 PM EST ----- azzouz - rx refill amphetamine-dextroamphetamine (ADDERALL) 30 mg Oral Tablet modafiniL (PROVIGIL) 200 mg Oral Tablet Preferred Pharmacy [facility] [id number] [place], [place] - [address] [place] [address] [address] [facility] [address] & [facility] [address] [facility] [place] [address] Hours: Not open 24 hours documented in this encounter Plan of Treatment Not on file documented as of this encounter Visit Diagnoses Not on filedocumented in this encounter Additional Health Concerns Infection Onset Date Last Indicated Resolved Time COVID-19 Rule-out 10/14/2023 10/14/2023 10/15/2023 9:14 AM EDT documented as of this encounter Care Teams Sushi Chef Relationship Specialty Start Date End Date Luci Galvez MD [address] [place] [phone] PCP - Managed Care/Insurance Pediatrics 11/14/15 Pcp, No PCP - General 10/09/18 documented as of this encounter
--- OUTSIDE RECORDS SUMMARY | 2025-03-30 16:06 | XMS_ITS | Encounter Summary ---
Author Organization [facility] Address 1 [facility] [place] [address] Care Team Providers Care Health Physics Technician Name Role Phone Luci Galvez MD Unavailable [phone] Pcp, No Primary Care Provider Unavailabl e Reason for Visit * Reason Onset Date Comments Referral 03/08/2025 Encounter Details Date Type Department Care Team (Late st Contact Info) Description 03/08/2025 Nurse Triage Neurology, Physician Office Center [address] [place] [phone] Ani Kramer MD [address] [place] [address] [address] TIFFANIE MUIR [address] [place] [address] Social History Tobacco Use Types [...] Telephone Encounter - Katey Gomez RN - 03/08/2025 1:53 PM EDT Called and spoke with pt Needs [facility] Neurology and Sleep [address] [facility], [address] [place], [place] [address] * Telephone Encounter - Katey Gomez RN - 03/08/2025 1:53 PM EDT Regarding: Clinical Question - Nia ----- Message from Hailey Estrella sent at 03/08/2025 11:43 AM EDT ----- Copied From [facility] #[id number]. Jazmín Ceballos (Self) called with a clinical question. Referral needs sent to [facility], it was sent [place]. Call back [phone] documented in this encounter Plan of Treatment Not on file documented as of this encounter Visit Diagnoses Not on filedocumented in this encounter Care Teams Health Physics Technician Relationship Specialty Start Date End Date Luci Galvez MD [address] [facility] [place] [phone] PCP - Managed Care/Insurance Pediatrics 11/14/15 Pcp, No PCP - General 10/09/18 documented as of this encounter
--- OUTSIDE RECORDS SUMMARY | 2025-03-30 16:06 | XMS_ITS | Encounter Summary ---
Author Organization [facility] Address [address] [facility] [place] [address] Care Team Providers Care Office Support Name Role Phone Luci Galvez MD Unavailable [phone] Pcp, No Primary Care Provider Unavailabl e Reason for Visit * Reason Onset Date Comments Medication Refill 03/04/2021 Encounter Details Date Type Department Care Team (Late st Contact Info) Description 03/04/2021 MyChart Refill Neurology, Physician Office Center 1 [place] [address] Ani Kramer MD [address] [place] [address] [address] TIFFANIE MUIR [address] [place] [address] Social History Tobacco Use Types [...] Telephone Encounter - Katey Gomez RN - 03/05/2021 2:45 PM EDT Already done Ani Kramer MD Azzouz, Mouhannad, MD Panel Detail for ADDERALL 30 MG 3 MO PANEL Outpatient Medication Detail Disp Refills Start End amphetamine-dextroamphetamine (ADDERALL) 30 mg Oral Tablet 60 Tablet 0 03/05/2021 04/03/2021 Sig - Route: Take 1 Tablet (30 mg total) by mouth Twice daily for 29 days - Oral Sent to pharmacy as: dextroamphetamine-amphetamine 30 mg tablet (AdderalL) Class: E-Rx Earliest Fill Date: 03/05/2021 Non-formulary Exception Code: [id number]/No Formulary Info Available E-Prescribing Status: Receipt confirmed by pharmacy (03/05/2021 11:31 AM EDT) Other Panel Orders Outpatient Medications * Telephone Encounter - Katey Gomez RN - 03/05/2021 2:45 PM EDT Regarding: azzouz ----- Message from Sarahy Schultz sent at 03/05/2021 2:23 PM EDT ----- Azzouz - rx refill amphetamine-dextroamphetamine (ADDERALL) 30 mg Oral Tablet Preferred Pharmacy [facility] [id number] - [address] AT [facility] [address] [place] [address] Hours: Not open 24 hours * Telephone Encounter - Katey Gomez RN - 03/05/2021 7:53 AM EDT Last seen 11/27/20 Please erx documented in this encounter Plan of Treatment Not on file documented as of this encounter Visit Diagnoses Not on filedocumented in this encounter Additional Health Concerns Infection Onset Date Last Indicated Resolved Time COVID-19 Rule-out 10/14/2023 10/14/2023 10/15/2023 9:14 AM EDT documented as of this encounter Care Teams Office Support Relationship Specialty Start Date End Date Luci Galvez MD [address] [facility] [place] [address] PCP - Managed Care/Insurance Pediatrics 11/14/15 Pcp, No PCP - General 10/09/18 documented as of this encounter
--- OUTSIDE RECORDS SUMMARY | 2025-03-30 16:06 | XMS_ITS | Encounter Summary ---
Author Organization [facility] Address [address] [facility] [place] [address] Care Team Providers Care Clinical Evaluator Name Role Phone Luci Galvez MD Unavailable [phone] Pcp, No Primary Care Provider Unavailabl e Reason for Visit * Reason Onset Date Comments Medication Refill 03/12/2020 Encounter Details Date Type Department Care Team (Late st Contact Info) Description 03/12/2020 MyChart Refill Neurology Clinic, [facility] Eye [address] [phone] Ani Kramer MD [address] [place] [address] [address] TIFFANIE MUIR [address] [place] [address] Social History Tobacco Use Types [...] have Coronavirus / COVID-19? No / Unsure 02/11/2020 5:18 PM EDT documented as of this encounter Miscellaneous Notes * Telephone Encounter - Katey Gomez RN - 03/13/2020 7:50 AM EDT Please erx documented in this encounter Plan of Treatment Not on file documented as of this encounter Visit Diagnoses Not on filedocumented in this encounter Additional Health Concerns Infection Onset Date Last Indicated Resolved Time COVID-19 Rule-out 10/14/2023 10/14/2023 10/15/2023 9:14 AM EDT documented as of this encounter Care Teams Clinical Evaluator Relationship Specialty Start Date End Date Luci Galvez MD [address] [facility] [place] [address] PCP - Managed Care/Insurance Pediatrics 11/14/15 Pcp, No PCP - General 10/09/18 documented as of this encounter
--- OUTSIDE RECORDS SUMMARY | 2025-03-30 16:07 | XMS_ITS | Clinical Summary ---
Author Organization [facility] Address 1 [facility] [place] [address] Care Team Providers Care Manager Ship Name Role Phone Luci Galvez MD Unavailable [phone] Pcp, No Primary Care Provider Unavailabl e Allergies No known active allergies Medications * This document contains information received from the source organization and may not represent a complete record from that organization. cyclobenzaprine (FLEXERIL) 5 mg Oral TabletIndicatio ns:Low back strain Take 1 Tab (5 mg total) by mouth Three times a day as needed for Muscle spasms 40 Tab 03/03/20 19 Active Additional Information Patient not taking.Reason: Other, Reported on 02/04/2020 Ibuprofen (MOTRIN) 800 mg Oral TabletIndicatio ns:Low back strain Take 1 Tab (800 mg total) by mouth Three times a day as needed for Pain 30 Tab 03/03/20 19 Active gabapentin (NEURONTIN) 100 mg Oral Capsule Take 1 Cap (100 mg total) by mouth Twice daily 60 Cap 02/04/20 20 Active Additional Information Patient not taking.Reason: Other, Reported on 11/27/2020 ondansetron (ZOFRAN ODT) 4 mg Oral Tablet, Rapid Dissolve Take 1 Tablet (4 mg total) by mouth Every 8 hours as needed for Nausea/Vomiting 12 Tablet 12/17/19 21 Active Additional Information Patient not taking.Reason: Other, Reported on 10/21/2022 acetaminophen-c odeine (TYLENOL #3) 300-30 mg Oral Tablet Take 1 Tablet by mouth Every 6 hours as needed 12 Tablet 12/17/19 21 Active Additional Information Patient not taking.Reason: Other, Reported on 10/21/2022 omeprazole (PRILOSEC) 20 mg Oral Capsule, Delayed Release(E.C.) Take 1 Capsule (20 mg total) by mouth Once a day 30 Capsule 12/17/19 21 Active Additional Information Patient not taking.Reason: Other, Reported on 10/21/2022 ofloxacin (OCUFLOX) 0.3 % Ophthalmic DropsIndication s:Pain in eye, unspecified laterality,Pomerene eal abrasion Instill 1-2 Drops into both eyes Four times a day 10 mL 07/08/20 Active Additional Information Patient not taking.Reason: Other, Reported on 10/21/2022 erythromycin (ROMYCIN) 5 mg/gram (0.5 %) Ophthalmic OintmentIndicat ions:Pain in eye, unspecified laterality,Pomerene eal abrasion Instill into both eyes Three times a day 3.5 g 07/08/20 Active Additional Information Patient not taking.Reason: Other, Reported on 10/21/2022 modafiniL (PROVIGIL) 200 mg Oral Tablet Take 1 Tablet (200 mg total) by mouth Once a day 30 Tablet 5 08/25/19 24 Active Additional Information Patient not taking.Reported on 10/14/2023 Benzonatate (TESSALON) 200 mg Oral Capsule Take 1 Capsule (200 mg total) by mouth Three times a day as needed for Cough 30 Capsule 10/05/19 24 Active Additional Information Patient not taking.Reason: Other, Reported on 04/19/2024 azithromycin (ZITHROMAX) 250 mg Oral Tablet Take 500 mg (2 tab) on day 1; take 250 mg (1 tab) on days 2-5. 6 Tablet 10/05/19 24 Active Additional Information Patient not taking.Reported on 10/14/2023 albuterol sulfate (PROAIR HFA) 90 mcg/actuation Inhalation oral inhaler Take 2 Puffs by inhalation Every 4 hours as needed 1 Each 10/05/19 24 Active montelukast (SINGULAIR) 10 mg Oral Tablet Take 1 Tablet (10 mg total) by mouth Every evening 30 Tablet 10/14/19 24 Active Additional Information Patient not taking.Reason: Other, Reported on 04/19/2024 FLUoxetine (PROZAC) 40 mg Oral Capsule TAKE 1 CAPSULE BY MOUTH DAILY 30 Capsule 01/23/20 24 Active Additional Information Patient not taking.Reason: Other, Reported on 04/19/2024 WAKIX 17.8 mg Oral Tablet Take two tablets (35.6 mg) by mouth daily upon awakening 60 Tablet 10 03/08/20 24 Active dextroamphetami ne-amphetamine (ADDERALL) 30 mg Oral Tablet Take 1 Tablet (30 mg total) by mouth Twice daily 60 Tablet 03/02/20 25 Active dextroamphetami ne-amphetamine (ADDERALL) 30 mg Oral Tablet Take 1 Tablet (30 mg total) by mouth Twice daily for 29 days 60 Tablet 01/31/20 25 025 dextroamphetami ne-amphetamine (ADDERALL) 30 mg Oral Tablet Take 1 Tablet (30 mg total) by mouth Twice daily 60 Tablet 12/03/19 25 025 Discontinu ed(Reorder ) dextroamphetami ne-amphetamine (ADDERALL) 30 mg Oral Tablet Take 1 Tablet (30 mg total) by mouth Twice daily 60 Tablet 03/01/20 25 025 Discontinu ed(Reorder ) Active Problems Problem Noted Date Diagnosed Date Low back pain 03/26/2019 Leg pain 03/26/2019 Hives 08/13/2017 Rosacea 06/26/2016 Acne comedone 06/26/2016 Hidradenitis suppurativa 06/26/2016 Depression 12/28/2015 Narcolepsy 10/17/2008 Encounters * This document contains information received from the source organization and may not represent a complete record from that organization. Date Type Department Care Team Description 03/08/2025 Nurse Triage Neurology, Physician Office Center [address] [place] [phone] Ani Kramer MD 03/01/2025 Refill Neurology, Physician Office [address] [place] [address] Ani Kramer MD 03/01/2025 Refill Neurology, Physician Office Center [address] [place] [phone] Ani Kramer MD 02/16/2025 Nurse Triage Neurology, Physician Office Center [address] [place] [address], [place] [address] Ani Kramer MD Narcolepsy (Primary Dx) 12/28/2024 Nurse Triage Neurology, Physician Office Center [address] [place] [address], [place] [phone] Ani Kramer MD from Last 3 Months Immunizations Immunization Administration Dates Next Due Covid-19 Vaccine,Pfizer-BioNTech,Purple Top,12yr s+ 03/09/2021,02/14/2021 Tetanus Toxoid/Diphtheria To xoid/Acellular Pertussis Vaccine, Adsorbed 05/29/2022 Family History Medical History Relation Name Comments Asthma Brother Diabetes Maternal Grandmother HTN <20 y.o. Maternal Grandmother Obesity Maternal Grandmother Thyroid Disease Maternal Grandmother Ulcerative Colitis Maternal Grandmother Breast Cancer Neg Hx Colon Cancer Neg Hx Uterine Cancer Neg Hx Relation Name Status Comments Brother Father Alive Maternal Grandmother Mother Alive Social History Tobacco Use Types Packs/Day Years Used Date Smoking Tobacco: Never Passive Smoke Exposure: Never Smokeless Tobacco: Never Tobacco Cessation:Counseling Given: Not Answered Comments:3 cigars per day Alcohol Use Standard Drinks/Week Comments No 0 (1 standard drink = 0.6 oz pur e alcohol) Comments No Sex and Gender Information Value Date Recorded Sex Assigned at Female 12/11/2022 3:08 PM EDT Legal Sex Female 12:42 AM EST Gender Identity Female 12/11/2022 3:08 PM EDT Sexual Orientation Not on file Last Filed Vital Signs Vital Sign Reading Time Taken Comments Blood Pressure 130/66 04/19/2024 11:59 AM EDT Pulse 92 04/19/2024 11:59 AM EDT Temperature 35.9 C (96.6 F) 04/19/2024 11:59 AM EDT Respiratory Rate 20 10/14/2023 5:24 PM EDT Oxygen Saturation 99% 04/19/2024 11:59 AM EDT Inhaled Oxygen Concentration - - Weight 100 kg (221 lb 5.5 oz) 04/19/2024 11:59 A M EDT Height 162.6 cm (5' 4 ) 04/19/2024 11:59 AM EDT Body Mass Index 37.99 04/19/2024 11:59 AM EDT Plan of Treatment Health Maintenance Due Date Last Done Comments NonMedicare Preventative Exam 10/30/2019 10/29/2018, 05/19/2017 Pap smear/HPV 05/19/2020 05/19/2017 [facility] [employer] SALES MANAGER Cap ture Hidden 02/18/2025 10/18/2015 Covid-19 Vaccine (3 - 2024-2 6 season) 2025 03/09/2021, 02/14/2021 Influenza Vaccine (#1) 2025 05/02/2021 Adult Tdap-Td (4 - Td or Tdap) 05/29/2032 1 07/29/2021, 10/06/2000, 12/28/1998, Additional history exists HIV Screening Completed 10/29/2018 Hepatitis C screening Completed 10/29/2018 HPV Vaccine (Optional 27-45 Years) (No Doses Required) Completed Procedures Procedure Name Priority Date/Time Associated Diagnosis Comments HIV1/HIV2 SCREEN, COMBINED ANTIGEN AND ANTIBODY Routine 10/29/2018 9:45 AM EDT Routine screening for STI (sexually transmitted infection) HEPATITIS C ANTIBODY SCREEN WITH REFLEX TO HCV PCR Routine 10/29/2018 9:45 AM EDT Routine screening for STI (sexually transmitted infection) CYTOPATHOLOGY, MOTION PICTURE CAMERA OPERATOR +/- HIGH RISK HPV Routine 05/19/2017 12:53 PM EDT from Last 3 Months or Most Recently Relevant to Health Maintenance Results * HIV1/HIV2 SCREEN, COMBINED ANTIGEN AND ANTIBODY (10/29/2018 9:45 AM EDT) HIV SCREEN, COMBINED ANTIGEN & ANTIBODY Negative Negative 10/29/2018 2:16 PM EDT [facility] Comment: Call the laboratory for assistance in cases with discordance between screen & confirmation Note: for patients <2 yrs of age, it is recommended that an HIV-1 Proviral DNA by PCR be ordered to rule out the presence of HIV1/2 antigen or antibody from maternal origin. Blood BLOOD SPECIMEN / Unknown Venipuncture / Unknown 10/29/2018 9:45 AM EDT 10/29/2018 9:46 AM EDT Chandrika Chanel CNM LAB-CHEMISTRY ORDERABLES F inal Result Performing Organization Address [facility] [place] [address] * Hepatitis C Antibody (10/29/2018 9:45 AM EDT) [facility] HCV ANTIBODY QUALITATIVE Negative Negative 10/29/2018 2:24 PM EDT [facility] Comment: CMIA Method by Development Planner Blood BLOOD SPECIMEN / Unknown Venipuncture / Unknown 10/29/2018 9:45 AM EDT 10/29/2018 9:46 AM EDT Chandrika ROTHMAN LAB-IMMUNOLOGY ORDERABLES Final Result Performing Organization Address [facility] [place] [address] * CYTOPATHOLOGY-MOTION PICTURE CAMERA OPERATOR (PAP AND HPV TESTS) (05/19/2017 12:53 PM EDT) 05/19/2017 12:5 3 PM EDT 05/21/2017 12:53 PM EDT Narrative [facility] - 05/27/2017 4:20 PM EST [facility], [facility]. [place] [address] Cytopathology Report Patient Name: JAZMÍN CEBALLOS Med. Rec. #: [id number] Client: Lexus Hardy Taken: 05/19/2017 : 1985 (Age: 31) Location: [facility] Received: 05/21/2017 Gender: F Service: Reported: 05/27/2017 Billing #: [id number] Physician(s): Pavithra Silke Neal, M.D. Copy To: Source of Specimen(s) A:Cervical/Endocervical, Thin Prep Cytology Final Cytologic Diagnosis A. Cervical/Endocervical, Thin Prep Cytology: Satisfactory for evaluation. Endocervical/squamous metaplastic cells present. NEGATIVE FOR THE CELLS OF INTRAEPITHELIAL LESION OR MALIGNANCY Specimen sent for HPV Testing. Electronically Signed By: SID Michael (ASC) [email or web address]/05/27/2017 Cytology Educational Comments: Gynecologic cytology is a screening (not diagnostic) test for cervical cancer and its precursors in asymptomatic women. Women should receive cytologic and HPV tests (as indicated) at routine age-appropriate intervals. Pap and HPV tests have a small but real false negative rate. Those women with clinical signs or symptoms of a cervical abnormality should be further evaluated regardless of the test results. For additional information regarding recommended screening and management guidelines, please reference http://www.cdc.gov/cancer/cervical/pdf/guidelines.pdf and http://www.asccp.org/ConsensusGuidelines/tabid/7436/Defaul\t.aspx. Clinical History Pap Test: Screening Specimen Type: Liquid Date of LMP: 04/24/2017 : NO : NO Contraceptive Method: CONDOM History of Abnormal PAPs: NO HPV Testing Preference: REFLEX TESTING PER ASCCP GUIDELINES Relevant History: Report converted from historical pathology information system Pavithra De Jesus MD PATHOLOGY/CYTOLOGY ORDERABLES Edited Result - Final [facility] from Last 3 Months or Most Recently Relevant to Health Maintenance Insurance [employer] [facility] [place] Care Teams Manager Ship Relationship Specialty Start Date End Date Luci Galvez MD [address] [facility] [place] [phone] PCP - Managed Care/Insurance Pediatrics 11/14/15 Pcp, No PCP - General 10/09/18
== END 2025-03-30 14:04 | disposition home or self-care (01) ==
PROVIDERS: Visit Provider Physician Assistant Medical
DX: G47.19 Other hypersomnia (principal); G47.419 Narcolepsy without cataplexy; G47.10 Hypersomnia, unspecified; R68.89 Other general symptoms and signs
CPT/HCPCS: 99204

== ENCOUNTER → 2025-03-30 13:05 | Outpatient (BNVA) | payer MEDICAID, SELFPAY | PROVIDERS: Visit Provider Physician Assistant Medical | DX: G47.19 Other hypersomnia (principal); G47.419 Narcolepsy without cataplexy; G47.10 Hypersomnia, unspecified; R68.89 Other general symptoms and signs | CPT/HCPCS: 99212 ==